=== PATIENT | female | born 1995 | race Caucasian/White ===

== ENCOUNTER 2025-06-10 13:30 | Outpatient (CLI) | payer OTHER, SELFPAY | END 2025-06-10 13:31 | disposition home or self-care (01) | LOC: NFLDREF 06-15 13:57 | PROVIDERS: PCP Physician Assistant Medical; Referring Provider Physician Assistant Medical; Visit Provider Physician Assistant Medical | DX: Z00.00 Encounter for general adult medical examination without abnormal findings (principal) | CPT/HCPCS: 80053; 80061; 84443 ==